=== PATIENT | male | born 2000 | race Caucasian/White ===

== ENCOUNTER 2024-01-29 08:20 | Emergency (ER) | payer OTHER, SELFPAY ==
--- NOTE | ~2024-01-29 | XR_ITS ---
EXAMINATION: XR thoracic spine 3V DATE: 01/29/2024 08:56 INDICATION: Back pain. TECHNIQUE: 3 views of thoracic spine were obtained. COMPARISON: None. FINDINGS: There is 11 degrees levoscoliosis of upper thoracic spine, 7 degrees dextrocurvature of mid thoracic spine, and 7 degrees levocurvature of lower thoracic spine. Vertebral body heights and inte rvertebral disc heights are normal. IMPRESSION: 1. Scoliosis. Reviewed, dictated and finalized at location A. IMPRESSION: 1. Scoliosis.
[2024-01-29 08:33] VITALS: BP 130/65; PULSE 81; RESP 16; TEMP 37.1; O2SAT 100
--- NOTE | 2024-01-29 08:42 | ED.BACK ---
HPI - Back Pain/Injury General Chief Complaint: Back Pain/Injury Stated Complaint: back pain Time Seen by Provider: 01/29/24 08:42 Source: patient Mode of arrival: ambulatory Limitations: no limitations History of Present Illness HPI Narrative: 23-year-old male presents with complaint upper back pain since sneezing 2 nights ago. Patient states he tried to hold in his knees in the middle the night to try to not wake up his girlfriend and felt a pop to his back. Gabriels a pop with did not have any further pain. Woke up in the morning and had pain with movement. reports pain movement neck, arms, upper back. No radiation of pain. Yesterday had some muscle spasming. Ambulatory with steady gait All systems reviewed and negative except as noted above. Related Data Allergies Allergy/AdvReac Type Severity Reaction Status Date / Time No Known Allergies Allergy Verified 01/29/24 08:25 Review of Systems Review of Systems: CONSTITUTIONAL: Denies fever, chills, or sweats. EYES: Denies visual changes, redness, or discharge. ENT: Denies rhinorrhea, congestion, sore throat, or otalgia. CARDIOVASCULAR: Denies chest pain, palpitations, or edema. RESPIRATORY: Denies cough or dyspnea. GASTROINTESTINAL: Denies abdominal pain, nausea, vomiting, or diarrhea. GENITOURINARY: Denies dysuria or hematuria. SKIN: Denies rash or itching. MUSCULOSKELETAL: reports upper back pain. Denies joint pain, or myalgia. NEUROLOGIC: Denies headache, numbness, or weakness. PSYCHIATRIC: Denies anxiety or depression. All other systems reviewed are negative, except as documented in HPI. PMFSH Comments At time of signature, agree with nursing past medical, surgical, social and family history. There is no relevant family history pertinent to the presenting complaint. Exam Narrative: GENERAL: This is a well-nourished, well-developed patient, in no apparent distress. HEAD: normocephalic, atraumatic. EYES: PERRL. Sclera clear/white. Vision is grossly intact. EARS: External ears normal NOSE: External nose normal NECK: Neck supple, non-tender without lymphadenopathy, masses or thyromegaly. CARDIOVASCULAR: Regular rate and rhythm without murmurs, gallops, or rubs. RESPIRATORY: Clear to auscultation. Breath sounds equal bilaterally. No wheezes, rales, or rhonchi. SKIN: warm, Dry, intact with no suspicious lesions or rash, good texture and turgor. NEURO: awake, alert, and oriented to person, place and time. There were no obvious focal neurologic abnormalities. EXTREMITIES: No joint tenderness, effusion, or edema noted. BACK: no midline tenderness on exam. Normal range of motion. Course Course Level of Care: Express Care Visit Vital Signs Vital signs: Vital Signs Temperature 37.1 C 01/29/24 08:33 Pulse Rate 81 01/29/24 08:33 Respiratory Rate 16 01/29/24 08:33 Blood Pressure 130/65 01/29/24 08:33 Pulse Oximetry 100 01/29/24 08:33 Oxygen Delivery Room Air 01/29/24 08:33 Temperature 37.1 C 01/29/24 08:33 Pulse Rate 81 01/29/24 08:33 Respiratory Rate 16 01/29/24 08:33 Blood Pressure 130/65 01/29/24 08:33 Pulse Oximetry 100 01/29/24 08:33 Oxygen Delivery Room Air 01/29/24 08:33 Reviewed MDM - Back Pain/Injury MDM Narrative Medical decision making narrative: x-ray complaining today due to patient complaints specific area of pain to thoracic spine after sneezing. Able to reproduce pain with movement but not on palpation. Discussed x-ray results with patient. No fracture. No neuro deficits at discharge. Patient is aware of diagnosis, understands and agrees to treatment plan. Anticipatory guidance given. Patient agrees to follow-up as directed and is aware of reasons to seek care at the emergency department. Portions of this record may have been created with voice recognition software Differential Diagnosis Differential diagnosis: Likely thoracic back pain Imaging Data My impression: agre
== END 2024-01-29 09:40 | disposition home or self-care (01) ==
PROVIDERS: Emergency Provider Nurse Practitioner Family
DX: S29.012A Strain of muscle and tendon of back wall of thorax, initial encounter (principal); X50.0XXA Overexertion from strenuous movement or load, initial encounter
CPT/HCPCS: 72072; 99213; G0463